=== PATIENT | male | born 1965 | race Caucasian/White ===

== ENCOUNTER 2017-06-20 19:25 | Emergency (ER) | payer OTHER ==
[~2017-06-20] VITALS: Ht 175.3 cm; Wt 99.8 kg
[~2017-06-20 19:25] MED LIST: NAPR500T3 PO
--- NOTE | 2017-06-20 20:08 | NUR ---
Patient discharged to home in stable conditon. Written and verbal after care instructions given. Patient verbalizes understanding of instructions.
== END 2017-06-20 20:18 | disposition home or self-care (01) ==
LOC: ER 19:26
DX: M77.9 Enthesopathy, unspecified (principal)
CPT/HCPCS: 29125; 99283; A4663